=== PATIENT | female | born 1985 | race Caucasian/White ===

== ENCOUNTER 2022-11-15 08:07 | Outpatient (AMB) | payer BC, SELFPAY ==
--- NOTE | 2022-11-15 08:08 | MHC.OFFWIV ---
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 Patient states that her son has been sick with a cough however he has not complained of a sore throat. Patient denies any fevers, chills, cough, shortness of breath or pain in her ears and denies any other sick contacts. Patient has taken Motrin only for relief of her discomfort. [facility] Social History Patient Tobacco Use Status: Never used Tobacco Review of Systems Const All systems reviewed & are unremarkable except as noted in HPI and below Reports as per HPI, Denies chills and Denies fever(s) ENT Denies otalgia, Denies nasal congestion, Denies nasal discharge, Denies nasal obstruction, Denies sinus pressure and Reports sore throat Resp Denies chest congestion and Denies cough Physical Exam Vital Signs: Last Vital Signs Temp 99.0 F 11/15/22 08:11 Pulse 76 11/15/22 08:11 BP 110/70 11/15/22 08:11 Pulse Ox 98 11/15/22 08:11 Oxygen Delivery Method Room Air 11/15/22 08:11 BMI result Body Mass Index 31.0 Const General: cooperative, healthy appearing, comfortable and no acute distress Nutritional Appearance: average body habitus Orientation/consciousness: oriented to person, oriented to place and oriented to time Limitations: no limitations HEENT Head: Yes normal to inspection, Yes normocephalic and Yes atraumatic Ears: hearing grossly normal bilaterally, external ears normal and TM's normal bilaterally General nose exam: Normal external nose present Face and sinus: Yes normal facial exam and Yes sinuses nontender Mouth: Normal oral and palatal mucosa present, tongue normal, oropharynx abnormals, moist mucous membranes, no muffled voice and normal tongue Teeth and gingiva: dentition normal Throat: No posterior oropharynx normal and Yes posterior oropharynx abnormal (mild erythema without edema or exudates) Eyes General: appearance normal, both eyes and all related structures Conjunctivae: conjunctivae normal Pupils: Equal, round and reactive pupils present EOM: EOMs intact bilaterally Neck Neck: Yes normal visual inspection Chest Chest palpation & inspection: normal palpation of entire chest wall Resp Effort & Inspection: normal respiratory effort Neuro General: oriented to person, oriented to place and oriented to time Cranial nerves: Yes Equal, round and reactive pupils present Results AMB Rapid Strep AMB Rapid Strep Negative Last Edit by Cruz Enriquez CMA on 11/15/22 08:30 Results Reviewed Results Reviewed: Rapid strep is negative. Assessment & Plan Assessment & Plan (1) Acute pharyngitis: Code(s): J02.9 - Acute pharyngitis, unspecified Plan Patient will be discharged home and instructed to continue taking ibuprofen as needed for her acute pharyngitis. Patient will not be treated with antibiotic therapy at this time. Orders: Orders AMB Rapid Strep Screen Today Z13.9 - Encounter for screening, unspecified Coding Level of Care Code New Pt Level 3 (93277) Diagnoses Acute pharyngitis J02.9 Time Spent (min) 20
--- OUTSIDE RECORDS SUMMARY | 2022-11-15 08:08 | XMS_ITS | Continuity of Care Document ---
Author Name Unknown Organization [facility] ter Address [address] [place] [id number] Care Team Providers Care Residential Fee Appraiser Name Role Phone Ivet Miller MD Primary Care Physician [phone] Encounter [facility] Date(s): 07/18/20 - 07/20/[address] [id number]- Discharge Disposition: A-D/C Home Attending Physician: Rob Childs MD Admitting Physician: Rob Childs MD Referring Physician: Not on Staff, Referring MD Allergies, Adverse Reactions, Alerts Substance Reaction Severity Status NKA Active Medications acetaminophen 325 mg oral tablet 650 mg, By Mouth, Every 4 hours, PRN, (1-3), may give 325mg per patient preference and re-dose [id number] within 4 hours, if needed. Patient should only receive a total of 650mg of Acetaminophen every 4 hours., Refills 0, Maintenance, Pain , Mild, 1... Start Date: 01/09/18 Status: Ordered docusate sodium 100 mg oral capsule 100 mg, 1, capsule, By Mouth, 2 times a day, Refills 0, Maintenance, 01/09/18 9:19:42 EST Start Date: 01/09/18 Status: Ordered ibuprofen 800 mg oral tablet 800 mg, By Mouth, Every 8 hours, PRN, (4-6), may give 400mg per patient preference and re-dose [id number] within 8 hours if needed. Patient should only receive a total of 800mg of Ibuprofen every 8 hours., Refills 0, Maintenance, Pain , Moderate, 11... Start Date: 01/09/18 Status: Ordered Ibuprofen Tablet 800 mg, Tablet, By Mouth, Every 8 hours, PRN for Pain , Moderate, (4-6), may give 400mg per patientpreference and re-dose with 400mg within 8 hours if needed. Patient should only receive a total of 800mg of Ibuprofen every 8 hours., Routine, 07/18/... Start Date: 07/18/20 Stop Date: 07/20/20 Status: Discontinued Multivitamins By Mouth, Daily, 0 Refills, Maintenance, 01/07/18 9:17:01 EST Start Date: 01/07/18 Status: Ordered Vital Signs Most recent to oldest [Reference Range]: 1 2 3 Height 160 cm (07/20/20 8:45 AM) 160 cm (07/20/20 12:00 AM) 160 cm (07/19/20 11:42 PM) Weight 93 kg (07/18/20 4:31 PM) Oxygen Saturation [94-100 %] 100 % (07/20/20 12:00 AM) 95 % (07/19/20 6:13 AM) 97 % (07/19/20 2:00 AM) Pulse Rate [55-90 bpm] 90 bpm (07/20/20 8:45 AM) 78 bpm (07/20/20 12:00 AM) 86 bpm (07/19/20 5:00 PM) Body Mass Index [18.5-24.99] 36.33 *>HHI* (07/18/20 4:31 PM) Blood Pressure [90-138/55-84 mm Hg] 109/70mm Hg (07/20/20 8:45 AM) 107/71mm Hg (07/20/20 12:00 AM) 103/72mm Hg (07/19/20 5:00 PM) Respiratory Rate [16-30 br/min] 18 br/min (07/20/20 8:45 AM) 16 br/min (07/20/20 1:33 AM) 17 br/min (07/20/20 12:00 AM) Temperature [96.8-100.4 DegF] 98.5 DegF (07/20/20 8:45 AM) 98.0 DegF (07/20/20 12:00 AM) 98.5 DegF (07/19/20 5:00 PM) Mode of Delivery (Oxygen) Room air (07/20/20 12:00 AM) Room air (07/19/20 6:13 AM) Room air (07/19/20 2:00 AM) Blood pressure sites Arm, right (07/19/20 12:20 AM) Arm, left (07/18/20 4:31 PM) Temperature Route Oral (07/20/20 8:45 AM) Oral (07/20/20 12:00 AM) Oral (07/19/20 5:00 PM) Dry Weight 93 kg (07/18/20 4:31 PM) Social History Social History Type Response Smoking Status Never (less than 100 in lifetime); Tobacco user in household: No entered on: 01/07/18 Sex
[2022-11-15 08:11] VITALS: BP 110/70; PULSE 76; TEMP 37.2; O2SAT 98; BMI 31.0
== END 2022-11-15 08:30 | disposition home or self-care (01) ==
PROVIDERS: PCP Family Medicine; Visit Provider Physician Assistant
DX: J02.9 Acute pharyngitis, unspecified (principal)
CPT/HCPCS: 87880; 99203